=== PATIENT | male | born 1980 | race African-American/Black ===

== ENCOUNTER 2018-01-13 16:31 | Emergency (ER) | payer MEDICAID ==
[~2018-01-13] VITALS: Ht 172.7 cm; Wt 89.0 kg
[2018-01-13 16:36] VITALS: BP 134/83
== END 2018-01-13 17:47 | disposition home or self-care (01) ==
LOC: ER 16:31
DX: S81.811S Laceration without foreign body, right lower leg, sequela (principal); L03.115 Cellulitis of right lower limb; X95.9XXS Assault by unspecified firearm discharge, sequela; Z98.890 Other specified postprocedural states
CPT/HCPCS: 99283

== ENCOUNTER 2018-04-07 17:36 | Emergency (ER) | payer MEDICAID ==
[~2018-04-07] VITALS: Ht 180.3 cm; Wt 75.0 kg
[2018-04-07] MEDS ORDERED: HYDROCODONE/ACETAMINOPHEN 5/325MG TABLET PO ONE (21:15)
[2018-04-07 22:53] VITALS: BP 140/85
== END 2018-04-07 23:02 | disposition home or self-care (01) ==
LOC: ER 17:36
DX: S62.326A Displaced fracture of shaft of fifth metacarpal bone, right hand, initial encounter for closed fracture (principal); W22.8XXA Striking against or struck by other objects, initial encounter; Y93.89 Activity, other specified; Y92.89 Other specified places as the place of occurrence of the external cause; F17.210 Nicotine dependence, cigarettes, uncomplicated; F12.90 Cannabis use, unspecified, uncomplicated; Z87.828 Personal history of other (healed) physical injury and trauma
CPT/HCPCS: 29125; 73110; 73130; 99284

== ENCOUNTER 2025-04-29 10:11 | Emergency (ER) | payer MEDICAID, OTHER ==
[~2025-04-29] VITALS: Ht 177.8 cm; Wt 91.0 kg
[2025-04-29 10:13] VITALS: O2SAT 100
[2025-04-29 10:15] VITALS: TEMP 36.9; O2SAT 98
[2025-04-29 11:13] VITALS: BP 161/111; PULSE 70; RESP 18
[2025-04-29] MEDS: IBUPROFEN 600MG TABLET PO ONE (11:13)
== END 2025-04-29 12:25 | disposition home or self-care (01) ==
LOC: ER 10:11
DX: S80.02XA Contusion of left knee, initial encounter (principal); S80.01XA Contusion of right knee, initial encounter; J45.909 Unspecified asthma, uncomplicated; V00.141A Fall from scooter (nonmotorized), initial encounter; Y93.89 Activity, other specified; Y92.89 Other specified places as the place of occurrence of the external cause; Y99.8 Other external cause status
CPT/HCPCS: 73560; 99283; Z7610; A6449